=== PATIENT | female | born 1950 | race Caucasian/White ===

== ENCOUNTER → 2019-04-09 | Outpatient (CLI) | payer OTHER ==
--- NOTE | 2019-04-09 13:35 | CT ---
Procedure: CT LUNG SCREENING Exam Date: 04/09/2019. Ordering Provider: Jesu Hartley Clinical Indication: LUNG SCREEN This patient meets eligibility criteria for low-dose CT lung cancer screening. Comparison: None. Technique: Using a multislice scanner, sequential helical axial imaging was obtained in the thorax, 2.5 mm thickness, 2.5 mm separation, from the level of the thoracic inlet through the lung bases without IV contrast. A low dose protocol was utilized for BMI greater than 30: BMI: 32. CTDI: 2.93 mGy. 120. kVp. 45 mA. DLP 105.53 mGy-centimeters. 2D sagittal and coronal reconstructed images, 6.0 mm thickness, were obtained. This exam was performed according to our departmental dose optimization program which includes use of automated exposure control, adjustment of the mA and/or kV according to patient size and/or use of iterative reconstruction technique. Nodule measurements under 10 mm are given as mean value of 3 axes diameters. FINDINGS: Lungs and large airways: Minimally dilated airspaces bilaterally more prevalent in the upper lobes with small blebs. Bibasilar pleural-parenchymal scarring. Scattered small bilateral subpleural solid nodules 3 mm or less. No abnormal nodules or masses. No focal infiltrates. Pleura and space: Bilateral small foci of pleural thickening. No effusion or pneumothorax. Mediastinum and lester: evaluation limited by low dose technique and lack of IV contrast. Normal sized lymph nodes and no dominant soft tissue masses. Heart and great vessels: Minimal atherosclerotic calcification of the aorta. Chest wall, lower neck, axillae: Evaluation also limited by same factors as described above. Normal sized lymph nodes. Upper abdomen: Evaluation limited by low-dose technique. No free air or fluid in the included peritoneal space. Atherosclerotic calcification of the aorta. Gallbladder partially visualized. Osseous structures: Evaluation limited by low dose MIP technique. No lytic or blastic lesions. IMPRESSION: 1. Bilateral scattered small subpleural solid nodules less than 2 mm diameter. Bilateral lung scarring. No abnormal nodules or masses. No focal infiltrates.. [facility] Best Practice recommendations: Please see below for Lung RADS category and FOLLOW-UP.* *Lung RADS category CATEGORY 2- Nodules with a very low likelihood (less than 1%) of becoming a clinically active cancer due to size or lack of growth. Nodules: Perifissural nodule(s) < 10 mm. (526mm3). Solid or part solid nodule(s) less than 6mm (113.1 mm3), new solid nodule less than 4mm (33.5 mm3). Ground glass nodule(s) less than 30mm (29206.2 mm3) or unchanged or slow growing ground glass nodule 30mm or greater. Cat 3 or 4 nodule unchanged for 3 or more months. FOLLOW-UP: Continue annual screening with a Low Dose Chest CT in 12 months for re-evaluation. Electronically signed by: Elkin Almanza MD 04/09/2019 1:33 PM CDT
== END ==
LOC: CT 10:00
PROVIDERS: ATTEND Family Medicine
DX: Z87.891 Personal history of nicotine dependence (principal)